=== PATIENT | male | born 1975 | race Caucasian/White ===

== ENCOUNTER → 2020-03-23 | Outpatient (REF) | payer OTHER ==
[2020-03-23 16:13] LABS: HEMATOCRIT 42.8 % (42.0-52.0); HEMOGLOBIN 14.7 g/dl (13.5-17.5); MEAN CORPUSCULAR HEMOGLOBIN 30.9 pg (27.0-33.0); MEAN CORPUSCULAR HGB CONC 34.3 g/dl (32.0-36.5); MEAN CORPUSCULAR VOLUME 89.9 fl (80.0-96.0); PLATELET COUNT, AUTOMATED 206 10^3/uL (150-450); RED BLOOD COUNT 4.76 10^6/uL (4.30-6.10); WHITE BLOOD COUNT 10.9 10^3/uL (4.0-10.0)
[2020-03-23 16:21] LABS: INR 1.03; PROTHROMBIN TIME 13.2 SECONDS (11.8-14.0)
[2020-03-23 16:22] LABS: PARTIAL THROMBOPLASTIN TIME 31.3 SECONDS (25.0-38.4)
[2020-03-23 16:26] LABS: BLOOD UREA NITROGEN 8 MG/DL (7-18); CALCIUM LEVEL 8.8 MG/DL (8.5-10.1); CARBON DIOXIDE LEVEL 28 MEQ/L (21-32); CHLORIDE LEVEL 107 MEQ/L (98-107); CREATININE FOR GFR 0.76 MG/DL (0.70-1.30); GLOMERULAR FILTRATION RATE > 60.0 (>60); GLUCOSE, FASTING 89 MG/DL (70-100); SODIUM LEVEL 141 MEQ/L (136-145)
== END ==
LOC: M LABSMT 13:39
PROVIDERS: ATTEND Nurse Practitioner Family
DX: N50.819 Testicular pain, unspecified (principal); Z01.818 Encounter for other preprocedural examination

== ENCOUNTER 2020-05-13 11:23 | Day surgery (SDC) | payer OTHER ==
[~2020-05-13] VITALS: Ht 172.7 cm; Wt 94.3 kg
[~2020-05-13 11:23] MED LIST: LIDOCAINE 2% 100MG/5ML SDV (FOR ANES.) As Ordered ONE; MIDAZOLAM INJ 2MG/2ML VIAL (J2250 PER 1MG) As Ordered ONE; ONDANSETRON 4MG/2ML VIAL As Ordered ONE; fentaNYL 100 MCG/2 ML INJECTION (J3010) As Ordered ONE; propofoL 200 MG/20 ML VIAL As Ordered ONE
[2020-05-13] MEDS ORDERED: dexameTHASONE 4 MG/ML 1ML VIAL (J1100 PER 1MG) As Ordered ONE (11:37)
[2020-05-13] MEDS ORDERED: ceFAZolin 2 GM/D5W 50 ML IV BAG (J0690 PER 500MG) As Ordered ONE (11:38)
[2020-05-13] MEDS ORDERED: LIDOCAINE 1% MDV 20ML VIAL As Ordered ONE (12:33)
[2020-05-13] MEDS ORDERED: BACITRACIN OINTMENT 30GM TUBE As Ordered ONE (12:33)
[2020-05-13] MEDS ORDERED: BUPIVACAINE HCL 0.25% 10ML VIAL As Ordered ONE (12:34)
[2020-05-13] MEDS ORDERED: ceFAZolin 2 GM/D5W 50 ML IV BAG (J0690 PER 500MG) IV ONE (12:43)
[2020-05-13] MEDS ORDERED: OXYC1TAB23 PO (14:23)
[2020-05-13] MEDS ORDERED: oxyCODONE 5MG TAB As Ordered ONE (14:26)
[2020-05-13] MEDS: oxyCODONE 5MG TAB PO PRN ×2 (14:27→14:55)
[2020-05-13] MEDS ORDERED: ONDANSETRON 4MG/2ML VIAL IV PRN (14:30)
[2020-05-13] MEDS ORDERED: fentaNYL 100 MCG/2 ML INJECTION (J3010) IV PRN (14:30)
[2020-05-13] MEDS ORDERED: PERCOCET 5MG/325MG TAB PO PRN (14:30)
[2020-05-13] MEDS ORDERED: LR 1,000 ML IV SCH (14:30)
[2020-05-13 15:10] VITALS: BP 130/87
--- NOTE | 2020-07-02 13:16 | RO ---
DATE OF PROCEDURE: May 13, 2020 PRE-PROCEDURE DIAGNOSIS: Left epididymal granuloma. POST-PROCEDURE DIAGNOSIS: Left epididymal granuloma. PROCEDURE: Left epididymectomy. SURGEON: Christian Mitchell MD NURSE PRACTITIONER ADULT: None. ANESTHESIA: General. OPERATIVE INDICATIONS: This is 44-year-old male who has been having chronic left testicular pain. On ultrasound, it appeared that his pain localized to a left epididymal granuloma. He was brought to the operating room today for treatment. DESCRIPTION OF PROCEDURE: The patient was brought to the operating room and general anesthesia was induced. Prophylactic antibiotics were infused. He was placed in the supine position and prepped and draped in the usual sterile fashion. At this point, an approximately 3-4 cm transverse incision was made over the left hemiscrotum. We dissected down through the left scrotal wall layers. The testicle was then delivered outside of the left hemiscrotum. The tunica vaginalis was opened using electrocautery. At this point, I examined the left epididymis and hard in the area in the epididymal head we palpated. It did not appear possible to dissect that area out without removing the entire epididymis. He would likely have an increased risk of bleeding if that area alone was removed. I therefore, made the decision to remove the entire left epididymis. The left epididymis was carefully dissected using electrocautery. Any moderate sized vessels were suture ligated using 2-0 Vicryl suture. Once the left epididymis was completely excised, it was handed off of the table and sent for pathologic analysis. At this point, hemostasis was obtained using electrocautery. Once satisfied with hemostasis, the testicle was then delivered back inside the left hemiscrotum in its normal anatomic position. There were no injuries to the testicular artery during this procedure. The testicle still appeared very healthy at the end of the procedure. Once the testicle was placed back inside the left hemiscrotum, the dartos was closed with running 3-0 Vicryl suture. The skin was closed with interrupted 2-0 chromic sutures. Dressings were then applied. This marked the conclusion of the procedure. The patient was then awakened from anesthesia and transferred to the recovery room in stable condition. ESTIMATED BLOOD LOSS: 5 mL. COMPLICATIONS: None. SPECIMENS: Left epididymis. PLAN: The patient will follow up in the clinic in a few weeks for postoperative visit. REZA
== END 2020-05-13 15:19 | disposition home or self-care (01) ==
LOC: M SDC 11:23
PROVIDERS: ATTEND Urology
DX: N50.9 Disorder of male genital organs, unspecified (principal); F17.218 Nicotine dependence, cigarettes, with other nicotine-induced disorders
CPT/HCPCS: 54840; 88304; J0690; J1100; J2250; J2405; J3010